=== PATIENT | female | born 1990 | race Caucasian/White ===

== ENCOUNTER 2017-01-01 20:21 | Emergency (ER) | payer BC, OTHER ==
[~2017-01-01] VITALS: Ht 170.2 cm; Wt 63.5 kg
--- OUTSIDE RECORDS SUMMARY | 2017-01-01 20:29 | XMS REPORT | Referral Summary ---
Author Author [facility], [facility], [facility] Organization [facility], [employer] [employer], [facility] Address Unknown Phone Unavailable Care Team Providers Care Information Technology Internship Name Role Phone No PCP, Pt States PCP Encounter VC Date(s): 07/13/15 - 07/13/15 [facility], [facility], Optometry [address], [place] [address] Discharge Disposition: 01-Home or Self Care Attending Physician: Navin Sauceda OD Vital Signs No data available for this section Problem List Condition Effective Dates Status Health Status Informant Myopia(Confirmed) Active Allergies, Adverse Reactions, Alerts No Known Allergies Medications Miscellaneous DME DME Item Frequency 55 Aspheric 8.7 -1.00 -1.00 order 2 bxs and mail to home., last exam: 09/16/2014, # 1 Each, 0 Refill(s), Supply Start Date: 12/09/13 Status: Ordered Results No data available for this section Immunizations Vaccine Date Refusal Reason influenza virus vaccine, live 04/17/13 influenza virus vaccine, live 03/21/12 Procedures No data available for this section Social History Social History Type Response Smoking Status Never smoker Assessment and Plan No data available for this section
--- OUTSIDE RECORDS SUMMARY | 2017-01-01 20:29 | XMS REPORT | Referral Summary ---
Author Author [facility]ía, [facility], Optometry Organization [facility], [facility], [facility] Address Unknown Phone Unavailable Care Team Providers Care Lead Maintenance Technician Name Role Phone No PCP, Pt States PCP Encounter VC Date(s): 09/26/14 - 09/26/14 [facility]ía, [facility], Optometry [address] [place], [place] [address] Discharge Disposition: 01-Home or Self Care Attending Physician: Navin Sauceda OD Vital Signs No data available for this section Problem List Condition Effective Dates Status Health Status Informant Myopia(Confirmed) Active Allergies, Adverse Reactions, Alerts No Known Allergies Medications Miscellaneous DME DME Item Frequency 55 Aspheric 8.7 -1.00 -1.00 order 4 bxs and send to [facility] Pearson [address] [place] [id number], last exam: 09/16/2014, # 1 Each, 0 [...]
--- OUTSIDE RECORDS SUMMARY | 2017-01-01 20:29 | XMS REPORT | Referral Summary ---
Author Author [facility]ía, [facility], Optometry Organization [facility], [facility], [facility] Address Unknown Phone Unavailable Care Team Providers Care Spot Welder Name Role Phone No PCP, Pt States PCP Encounter VC Date(s): 09/16/14 - 09/16/14 [facility] García, [facility], Opt[facility] [address], [place] [address] Discharge Diagnosis: Myopia Discharge Disposition: 01-Home or Self Care Attending Physician: Navin Sauceda OD Admitting Physician: Navin Sauceda OD Vital Signs No data available for this section Problem List Condition Effective Dates Status Health Status Informant Myopia(Confirmed) Active Allergies, Adverse Reactions, Alerts No Known Allergies Medications Miscellaneous DME DME Item Frequency 55 Aspheric 8.7 -1.00 -1.00 order 4 bxs and send to Codi Muniz [address] [address], last exam: 09/16/2014, # 1 Each, 0 Refill(s), Supply Start Date: 12/09/13 Status: Ordered Results No data available for this section Immunizations Vaccine Date Refusal Reason influenza virus vaccine, live 04/17/13 influenza virus vaccine, live 03/21/12 Procedures No data available for this section Social History Social History Type Response Smoking Status Never smoker Assessment and Plan Extracted from: Title: Ambulatory Patient Education Author: Navin Sauceda OD Date: Ophthalmology Myopia Nearsightedness (myopia ) is when objects that are far away cannot be seen clearly. This usually happens because the eye is either longer than normal or bends (refracts ) the light too much. As a result, the image is blurred. Myopia also often develops in the pre-teen years and progresses through the teens. You may see them holding things close to their eyes to see. You may also notice children sitting close to the television or white board in school. It generally stabilizes by the end of the teenage years. Myopia that continues to develop is called progressive myopia. CAUSES Growth spurts in children. Certain drugs and medicines. Some other causes of myopia (secondary myopia ) can happen from other medical conditions such as: Developing cataracts. High blood sugar (e.g. uncontrolled diabetes). . Premature . Other diseases of the eye. SYMPTOMS People with myopia have blurred vision in the affected eye(s) for anything far away, but can usually find a point up close at which they can see clearly. DIAGNOSIS An mortician helper or frame trimmer can diagnose myopia with tests using a series of lenses in front of the eye and the eye reading chart. TREATMENT Glasses or contact lenses. Ophthalmologists can use painless laser treatments to change the shape of the clear covering at the front of the eye (cornea ). SEEK IMMEDIATE MEDICAL CARE IF: You get a rapid blurring of vision in one or both eyes. Document Released: 04/17/2006 Document Revised: 07/09/2012 Document Reviewed: [employer] Patient Information 2014 [employer]. No follow up information was provided. Extracted from: Title: Contact Lens Eye Exam am Author: Navin Sauceda OD Date: 09/16/14 Impression and Plan Diagnosis Myopia (ICD9 367.1, Discharge, Medical). Plan: Spectacle prescription and contact lens information. . Patient Instructions: Eye - Myopia, 1 year. Prescription: Ophthalmology Rx (ST) Trials given Frequency 55 Aspheric8.7/-1.00 Frequency 55 Aspheric8.7/-1.00 Call OK.
--- NOTE | 2017-01-01 20:39 | ED Upper Extremity ---
General Chief Complaint: Laceration Stated Complaint: RT HAND LACERATION Nursing Triage Note: c/o laceration to R 5th finger Nursing Sepsis Screen: No Definite Risk Source: patient History of Present Illness Time seen by provider: 20:36 Initial Comments To ER with laceration to the dorsal aspect proximal phalanx right ring finger. This occurred prior to arrival. Vaccines are up-to-date. 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 Onset: just prior to arrival Severity: mild Pain/Injury Location: right 5th finger Constitutional: see HPI EENTM: see HPI Respiratory: no symptoms reported Cardiovascular: no symptoms reported Genitourinary: no symptoms reported Musculoskeletal: no symptoms reported Skin: see HPI Past Bponete-Arhgep-Hngfnb Hx Patient Social History Alcohol Use: Denies Use Recreational Drug Use: No Recent Foreign Travel: No Contact w/Someone Who Travel: No Recent Infectious Disease Expo: No Surgeries History of Surgeries: Yes (L ovarian cyst) Respiratory History of Respiratory Disorde: No Cardiovascular History of Cardiac Disorders: No Neurological History of Neurological Disord: Yes Neurological Disorders: Headaches /Migraines Genitourinary History of Genitourinary Disor: No Gastrointestinal History of Gastrointestinal Di: No Musculoskeletal History of Musculoskeletal Dis: No Endocrine History of Endocrine Disorders: No HEENT History of HEENT Disorders: No Cancer History of Cancer: No Psychosocial History of Psychiatric Problem: No Integumentary History of Skin or Integumenta: No Blood Transfusions History of Blood Disorders: No Physical Exam Vital Signs Vital Sign - Last 12Hours 01/01/17 20:28 Temp 98.7 Pulse 83 Resp 18 B/P (MAP) 135/90 Pulse Ox 96 Capillary Refill : Less Than 3 Seconds General Appearance: WD/WN, no apparent distress HEENT: PERRL/EOMI, normal ENT inspection Neck: non-tender, full range of motion Respiratory: no respiratory distress, no accessory muscle use Shoulder: normal inspection, non-tender Elbow/Forearm: normal inspection, non-tender, Right Wrist: Yes normal inspection, Yes non-tender Hand: Right, laceration (superficial 0.5 cm laceration to the ulnar side dorsal aspect proximal right phalanx fifth digit. Bleeding is controlled at this time.) Neurologic/Tendon: normal sensation, normal motor functions, normal tendon functions Neurologic/Psychiatric: alert, normal mood/affect, oriented x 3 Skin: normal color, warm/dry Laceration Repair : Other Closure Supply: Wound Adhesive Progress/Results/Core Measures Results/Orders Vital Signs/I&O Vital Sign - Last 12Hours 01/01/17 20:28 Temp 98.7 Pulse 83 Resp 18 B/P (MAP) 135/90 Pulse Ox 96 Blood Pressure Mean: 105 Departure Impression Impression: Primary Impression: Finger laceration Disposition: HOME, SELF-CARE Condition: Improved Departure-Patient Inst. Decision time for Depature: 20:38 Referrals: NO,LOCAL PHYSICIAN (PCP) Primary Care Physician Patient Instructions: Laceration Repair With Glue (DC) Add. Discharge Instructions: 1. Watch for signs of infection such as redness or swelling of the finger 2. Allow the glue to fall off on its own in 3-5 days 3. Do not apply any petroleum-based ointments to this as they will dissolve the glue. All discharge instructions reviewed with patient and/or family. Voiced understanding. 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
[2017-01-01 20:42] VITALS: BP 135/90
== END 2017-01-01 20:42 | disposition home or self-care (01) ==
LOC: ER 20:25
DX: S61.214A Laceration without foreign body of right ring finger without damage to nail, initial encounter (principal); G43.909 Migraine, unspecified, not intractable, without status migrainosus; W26.9XXA Contact with unspecified sharp object(s), initial encounter